=== PATIENT | male | born 1950 | race Two or more races ===

== ENCOUNTER 2021-10-13 08:26 | Day surgery (SDC) | payer MEDICARE, OTHER ==
[~2021-10-13] VITALS: Ht 170.2 cm; Wt 83.0 kg
[~2021-10-13 08:26] MED LIST: CARV3.1240 PO; ROSU10TA16 PO
[2021-10-13] MEDS ORDERED: ANGIOMAX 250 MG VIAL IV ONE (10:09)
[2021-10-13] MEDS ORDERED: HEPARIN SODIUM (PORCINE) 5000 UNITS/ML 1ML VIAL ONE (10:09)
[2021-10-13] MEDS ORDERED: fentaNYL CITRATE 100 MCG/2 ML VL ONE (10:09)
[2021-10-13] MEDS ORDERED: VERAPAMIL 2.5MG/ML INJ 2ML VIAL IV ONE (10:09)
[2021-10-13] MEDS ORDERED: SODIUM CHL 0.9% 0 ML ONE (10:10)
[2021-10-13] MEDS ORDERED: MIDAZOLAM HCL 2MG/2ML 2ml VIAL (1mg/ml) ONE (10:10)
[2021-10-13] MEDS ORDERED: LIDOCAINE 2%HCL (LOCAL ANESTH.) INJ 10ml MDV ONE (10:10)
[2021-10-13] MEDS ORDERED: IODIXANOL 320MG/ML 100ML BTL IV ONE (10:23)
== END 2021-10-13 13:25 | disposition home or self-care (01) ==
LOC: CATH 08:26
PROVIDERS: ATTEND Internal Medicine
DX: R94.39 Abnormal result of other cardiovascular function study (principal); I25.118 Atherosclerotic heart disease of native coronary artery with other forms of angina pectoris; E78.00 Pure hypercholesterolemia, unspecified; Z98.890 Other specified postprocedural states; Z79.899 Other long term (current) drug therapy; Z20.822 Contact with and (suspected) exposure to COVID-19
CPT/HCPCS: 93458; C1760; C1894; J1644; J2001; J2250; J3010; Q9967; U0003; 99152; 99153

== ENCOUNTER 2024-05-01 11:06 | Inpatient (IN) | payer MEDICARE, OTHER ==
[~2024-05-01] VITALS: Ht 170.2 cm; Wt 78.0 kg
[2024-05-01] VITALS (10 sets, daily range): BP systolic 149–178; BP diastolic 79–96; PULSE 60–100; RESP 14–19; TEMP 97.7–98; O2SAT 92–98
--- NOTE | 2024-05-01 11:27 | ED.PDOC ---
HPI Comments 73 year old male presents to the ED with chief complaint of dizziness. Patient reports that he has been experiencing dizziness since earlier this morning. Patient relays that he feels much more dizzy standing up, but when laying down he feels much better. Patient states he had an angiogram performed on 10/2021, but nothing was noted by his Perioperative Educator Dr. Stock. Patient noted to be bradycardic in the 20s and have hypotension during triage. Patient denies any chest pain, SOB, headache, N/V, syncope, or fever. Chief Complaint: Dizziness Time Seen by MD: 11:23 Reviewed Notes: Nurses Notes, Medications, Allergies Allergies: Coded Allergies: No Known Drug Allergy (Verified Allergy, Unknown, 10/08/21) Home Meds Reported Medications Rosuvastatin Calcium (Crestor) 10 Mg Tab, 1 TAB PO DAILY for cholesterol, #30 TAB 5 Refills 10/08/21 Carvedilol (Carvedilol) 3.125 Mg Tab, 3.125 MG PO DAILY for heart for 30 Days, MG 10/08/21 Information Source: Patient Mode of Arrival: Ambulatory Severity: Moderate Timing: Hours Duration: Since onset Prehospital treatment: None Cardiac Risk Factors: Hyperlipidemia PE Risk Factors: None History of: None Past Medical History PAST MEDICAL HISTORY: High Lipids Surgical History: Cholecystectomy Family History Family History: Reviewed,noncontributory to illness Social History Smoker: Non-Smoker Alcohol: Denies ETOH Use Drugs: Denies Drug Use Lives In: Home Constitutional: denies: chills, diaphoresis, fatigue, fever, malaise, sweats, weakness, others EENTM: denies: blurred vision, double vision, ear bleeding, ear discharge, ear drainage, ear pain, ear ringing, eye pain, eye redness, hearing loss, mouth pain, mouth swelling, nasal discharge, nose bleeding, nose congestion, nose pain, photophobia, tearing, throat pain, throat swelling, voice changes, others Respiratory: denies: cough, hemoptysis, orthopnea, SOB at rest, shortness of breath, SOB with excertion, stridor, wheezing, others Cardiovascular: reports: others (Bradycardia); denies: chest pain, dizzy spells, diaphoresis, Dyspnea on exertion, edema, irregular heart beat, left arm pain, lightheadedness, palpitations, PND, syncope Gastrointestinal: denies: abdomen distended, abdominal pain, blood streaked bowels, constipated, diarrhea, dysphagia, difficulty swallowing, hematemesis, melena, nausea, poor appetite, poor fluid intake, rectal bleeding, rectal pain, vomiting, others Genitourinary: denies: burning, dysuria, flank pain, frequency, hematuria, incontinence, penile discharge, penile sore, pain, testicle pain, testicle swelling, urgency, others Neurological: reports: dizziness; denies: fainting, headache, left sided numbness, left sided weakness, numbness, paresthesia, pre-existing deficit, right sided numbness, right sided weakness, seizure, speech problems, tingling, tremors, weakness, others Musculoskeletal: denies: back pain, gout, joint pain, joint swelling, muscle pain, muscle stiffness, neck pain, others Integumetry: denies: bruises, change in color, change in hair/nails, dryness, laceration, lesions, lumps, rash, wounds, others Allergic/Immunocompromised: denies: Difficulty Healing, Frequent Infections, Hi ves, Itching, others Hematologic/Lymphatic: denies: anemia, blood clots, easy bleeding, easy bruising, swollen glands, others Endocrine: denies: excessive hunger, excessive sweating, excessive thirst, excessive urination, flushing, intolerance to cold, intolerance to heat, unexplained weight gain, unexplained weight loss, others Psychiatric: denies: anxiety, bipolar disorder, depression, hopeless, panic disorder, schizophrenia, sleepless, suicidal, others All Other Systems: Reviewed and Negative Physical Exam General Appearance: Moderate Distress, Normal HEENT: Normal ENT Inspection, PERRL/EOMI Neck: Full Range of Motion, Non-Tender, Normal, Normal Inspection Respiratory: Chest Non-Tender, Lungs Clear, No Accessory Muscle Use, No Respiratory Distress, Normal Breath Sounds Cardiovascular: Bradycardia, No Edema, No JVD, No Murmur, No Gallop, Normal Peripheral Pulses Breast Exam: Deferred Gastrointestinal: No Organomegaly, Non Tender, No Pulsatile Mass, Normal Bowel Sounds, Soft Genitalia: Deferred Pelvic: Deferred Rectal: Deferred Extremities: No calf tenderness, Normal capillary refill, Normal inspection, Normal range of motion, Non-tender, No pedal edema Musculoskeletal : Apperance: Normal Neurologic: Alert, rfid manager II-XII nml as Tested, No Motor Deficits, Normal Affect, Normal Mood, No Sensory Deficits Cerebellar Function: NOT DONE Reflexes: NOT DONE Skin: Dry, Normal Color, Warm Peripheral Pulses: 3+ Radial (R), 3+ Radial (L) Lymphatic: No Adenopathy Was a procedure done? Was a procedure done?: No CP Differential Dx Differential Diagnosis: A-fib, A-Flutter, Angina, Anxiety / Panic Attack, Atrial Dysrhythmia, Electrolyte Disorder X-Ray, Labs, Meds, VS Vital Signs Date Time Temp Pulse Resp B/P (MAP) Pulse Ox O2 Delivery O2 Flow Rate FiO2 05/01/24 11:22 98.0 41 18 80/45 (57) 97 Patient alert. Feeling dizzy. Blood pressure low in the triage area. Answering questions. EKG shows bradycardia. His blood pressure normalized while lying down. Possibly will need pacemaker. Cardiology consultation. Placed on backup pacer. Reviewed his previous visit. Explained to the patient. Continue cardiac monitoring. Time of 1ST Reevaluation: 12:23 Reevaluation 1ST: Unchanged Patient Education/Counseling: Diagnosis, Treatment Family Education/Counseling: No Family Present Additional Information I reviewed the following notes from patient's past medical encounters: 10/13/21 for Angiogram The following tests were ordered, and results were reviewed by me: CBC, CMP, Troponin, EKG, Additional Information was gathered from interviewing the following independent historians: None I reviewed and agreed with the following test results read by other providers: None I discussed treatment and results with medical personnel. Departure 1 Departure Time of Disposition: 11:35 Impression: Primary Impression: Bradycardia Disposition: ADMITTED INPATIENT Admit to: Med Surg Condition: Guarded Critical Care Note Critical Care Time?: Yes (90 min-critical care time only) Stability Stability form required: No Heart Score Heart Score: Heart Score Response (Comments) Value History Highly Suspicious 2 EKG Repolarization Disturb 1 Age >65 2 Risk Factors 1 or 2 risk factors 1 Troponin Normal limit 0 Total 6 I personally scribed for MARK MERINO MD ([email or web address]) on 05/01/24 at 11:27. Electronically submitted by Roc Tracy ([email or web address]). MARK MERINO MD May 01, 2024 11:27
[2024-05-01] MEDS: SODIUM CHLORIDE 0.9% 1,000 ML IV ONE (11:30)
[2024-05-01] MEDS: GLUCAGON EMERG KIT 1mg/1ml IV ONE (11:45)
[2024-05-01 11:57] LABS: Basophils # (auto) 0 10 ^3/uL (0-0.2); Basophils % (auto) 0.4 % (0.0-2.0); Eosinophils # (auto) 0.1 10 ^3/uL (0-0.8); Eosinophils % (auto) 1.1 % (0.0-7.0); Hematocrit 44.3 % (41.0-53.0); Hemoglobin 14.9 g/dL (13.5-17.5); Lymphocytes # (auto) 1.3 10 ^3/uL (0.4-5.4); Lymphocytes % (auto) 15.6 % (10.0-50.0); Mean Corpuscular Hemoglobin 29.9 pg (28.0-32.0); Mean Corpuscular Hgb Conc. 33.7 g/dL (32.0-36.0); Mean Corpuscular Volume 88.7 fL (80.0-100.0); Monocytes # (auto) 0.6 10 ^3/uL (0-1.3); Monocytes % (auto) 7.3 % (0.0-12.0); Neutrophils # (auto) 6.1 10 ^3/uL (1.6-8.6); Neutrophils % (auto) 75.6 % (37.0-80.0); Nucleated Red Blood Cells % 0.1 %; Platelet Count (auto) 128 10^3/uL (140-450); Red Blood Cells 4.99 10^6/uL (4.5-5.90); Red Cell Distribution Width 14.7 % (11.8-14.3); White Blood Cell 8.1 10^3/uL (4.4-10.8)
--- NOTE | 2024-05-01 11:57 | DVHINCON2 ---
Date Seen: May 01, 2024 Referring Physician MD Naseem Reason for Consultation Complete heart block History of Present Illness This is a pleasant 73 y.o. male who presented to the Emergency Room with a chief complain of intermittent dizziness for approximately one week. The patient reports intermittent episodes of dizziness since this past week now progressing with tunneled vision, head pressure and mild SOB which prompted him to seek further medical attention. Upon arrival he underwent a twelve-lead electrocardiogram revealing a complete heart block with a HR at 23 bpm. Endorses taking Coreg 3.125 mg BID with latest intake this morning. Follows-up in the outpatient setting with Dr. Stock. Significant medical history includes hypertension and dyslipidemia. Past Medical History Past medical history reviewed. No other significant than mentioned above. Past Surgical History Hernia repair Cholecystectomy Family History Family history reviewed. Social History Denies the use of illicit drugs, alcohol, or tobacco use. Allergies: Coded Allergies: No Known Drug Allergy (Verified Allergy, Unknown, 10/08/21) Home Meds Reported Medications Rosuvastatin Calcium (Crestor) 10 Mg Tab, 1 TAB PO DAILY for cholesterol, #30 TAB 5 Refills 10/08/21 Carvedilol (Carvedilol) 3.125 Mg Tab, 3.125 MG PO DAILY for heart for 30 Days, MG 10/08/21 Home Meds Home medications reviewed. Review of Systems Constitutional: No symptom reported Ears, Nose, & Throat: No symptom reported Eyes: No symptom reported Neurological: Dizziness, visual disturbance, COFFMAN Pulmonary/Respiratory: No symptom reported Cardiovascular: No symptom reported Gastrointestinal: No symptom reported Genitourinary: No symptom reported Musculoskeletal: No symptom reported Skin: No symptom reported Psychiatric: No symptom reported Endocrine: No symptom reported Hemotologic/Lymphatic: No symptom reported Vital Signs Vital Signs Date Time Temp Pulse Resp B/P (MAP) Pulse Ox O2 Delivery O2 Flow Rate FiO2 05/01/24 11:22 98.0 41 18 80/45 (57) 97 Physical Exam General Appearance: Cooperative. Well developed. Well nourished. In no acute distress Head Exam: Normal inspection Neck Exam: Normal inspection. Non-tender. Normal alignment Pulmonary/Respiratory: Chest non-tender. Clear bilateral breath sounds Cardiovascular/Chest: Regular rate and rhythm. S1, S2. Complete heart block. No murmurs. No JVD. Peripheral Pulses: 2+ Radial (R). 2+ Radial (L). 2+ Pedal (R). 2+ Pedal (L) Abdominal Exam: Normal bowel sounds. Soft. Nontender. No hepatospenomegaly. No masses Ankle Exam: Negative ankle edema Lower extremities: Negative lower extremity edema Neuro/Mental Status: A&O x4. Coherent Thoughts/Psych: Normal thought pattern. Appropriate mood and affect. Good judgement and insight. Pleasant Appearance: In no acute distress Skin Exam: Normal inspection. Normal color. Warm. Dry Labs/Diagnostic Data Labs Test 05/01/24 11:30 Range/Units Assessment Complete heart block Rule out structural heart disease Hypertension Dyslipidemia Plan/Recommendation (Dr. Clark) Case discussed with Dr. Clark and Dr. Stock (primary dry chain puller). The patient with a complete heart block has been scheduled for an urgent permanent pacemaker implantation at first available. All risks and benefits of the procedure were discussed with the patient and at bedside. They agree to proceed with intervention. All questions answered. In the meantime, obtain a STAT transthoracic echocardiogram to further determine LV function and possible need for AICD. Avoid AV laura blocking agents. Avoid antiplatelet/AC therapy. C ontinue TC pacing at bedside. Monitor ECG changes closely and notify. Thank you for allowing us to participate in this patient's care. Please call if you have any questions or concerns. Critical care time: 45 min. This medical document was created using an electronic medical record system with voice recognition software and computerized dictation system. Although this document has been carefully reviewed, there might still be some phonetic and typographical errors. Occasional wrong-word or ``sound-alike substitutions may have occurred due to the inherent limitations of voice recognition software. These areas are purely typographical due to imperfections of the software programs and do not reflect any compromise in the patient's medical care. Please read the chart carefully and recognize, using context, where these substitutions have occurred. Plan discussed with: Patient, Other NYHA Physical activity limitations: NA Date of Service: May 01, 2024 Billing Provider: ANKIT GOODMAN Cardiology Common Codes: 37930-[id number] CARE 30-74 MIN ANKIT GOODMAN May 01, 2024 11:57
[2024-05-01] MEDS: GLUCAGON EMERG KIT 1mg/1ml ONE (12:00)
[2024-05-01 12:05] LABS: Albumin 3.8 g/dL (3.2-4.8); Anion Gap 8 (5-15); BUN/Creatinine Ratio 10.7 (10.0-20.0); Blood Urea Nitrogen 13 mg/dL (9-23); Calcium 9.5 mg/dL (8.7-10.4); Carbon Dioxide 22 mmol/L (20-31); Potassium 4.3 mmol/L (3.5-5.1)
[2024-05-01 12:06] LABS: Bilirubin, Total 0.7 mg/dL (0.2-1.0); Total Protein 5.8 g/dL (5.7-8.2)
[2024-05-01 12:08] LABS: Alanine Aminotransferase 123 U/L (7-40); Alkaline Phosphatase 123 U/L (46-116); Aspartate Aminotransferase 40 U/L (13-40); Chloride 116 mmol/L (98-107); Glucose 112 mg/dL (74-106); Sodium 146 mmol/L (136-145)
[2024-05-01 13:08] LABS: INR 1.09 (0.9-1.15); Prothrombin Time 11.5 sec (9.3-11.8)
--- NOTE | 2024-05-01 14:40 | DVH ---
CHEST RADIOGRAPH Indication: Pain Technique: Single frontal view of the chest was obtained COMPARISON: None FINDINGS: Lines and Tubes: None Lungs: Congestion Pleura: No effusion. No pneumothorax. Cardiomediastinal contours: Unremarkable Bones: Unremarkable IMPRESSION: Mild congestion
[2024-05-01] MEDS ORDERED: ACETAMINOPHEN 325 MG TAB PO PRN (17:45)
[2024-05-01] MEDS ORDERED: NITROGLYCERIN 0.4 MG SL TAB SL PRN (17:45)
[2024-05-01] MEDS ORDERED: MORPHINE SULFATE INJ 2 MG/ml SYRG IV PRN (17:45)
[2024-05-01] MEDS ORDERED: ONDANSETRON HCL 4 MG/2 ML VIAL IV PRN (17:45)
--- NOTE | 2024-05-01 17:46 | DVHHP2 ---
History of Present Illness Reason for Visit: SOB History of Present Illness Jose L Hidalgo is a 73-year-old male with past medical history of hyperlipidemia who presents to the ED for shortness of Breath. Upon evaluation in the recovery area patient states that he was short of breath this morning. Came into the ED for evaluation. Denies any fevers, chills, recent sick contacts, nausea, vomiting, and diarrhea. Cardiovascular: hyperipidemia Past Surgical History: Cholecystectomy Family History: Other (Both parents ) Smoke: No ALCOHOL: occassional Drugs: None Lives: with Family Domestic Violence: Neg Review of Systems Constitutional: No: Fever, Chills, Sweats, Weakness, Malaise, Other Eyes: No: Pain, Vision change, Conjunctivae inflammation, Eyelid inflammation, Other, Redness ENT: No: Ear pain, Ear discharge, Nose pain, Nose discharge, Nose congestion, Mouth pain, Mouth swelling, Throat pain, Throat swelling, Other Respiratory: Shortness of breath; No: Cough, Dry, SOB with excertion, Wheezing, Hemoptysis, Pleuritic Pain, Sputum, Wheezing, Other Cardiovascular: No: Chest Pain, Palpitations, Orthopnea, Paroxysmal Noc. Dyspnea, Edema, Lt Headedness, Other Gastrointestinal: No: Nausea, Vomiting, Abdominal Pain, Diarrhea, Constipation, Melena, Hematochezia, Other Genitourinary: No Dysuria, No Frequency, No Incontinence, No Hematuria, No Retention, No Other Musculoskeletal: No: other, neck pain, shoulder pain, arm pain, back pain, hand pain, leg pain, foot pain Skin: No: Rash, Lesions, Jaundice, Bruising, Other Neurological: No: Weakness, Numbness, Incoordination, Change in speech, Confusion, Seizures, Other Allergies: Coded Allergies: No Known Drug Allergy (Verified Allergy, Unknown, 10/08/21) Medications Current Medications Medications Dose Ordered Sig/Atiya Route Start Time Stop Time Status Last Admin Dose Admin Atorvastatin Calcium 40 mg HS PO 05/01/24 22:00 Hydralazine HCl 10 mg Q6HP PRN IV 05/01/24 14:15 Exam Vital Signs Vital Signs Date Time Temp Pulse Resp B/P (MAP) Pulse Ox O2 Delivery O2 Flow Rate FiO2 05/01/24 12:26 60 16 98 Nasal Cannula* 2 28 05/01/24 12:00 98.8 132/76 (94) 98.8 General Appearance: Alert, Oriented X3, Cooperative, No acute distress HEENT: Atraumatic, PERRLA, EOMI, Mucous membr. moist/pink Respiratory: Normal air movement Cardiovascular: Regular rate, Normal S1, Normal S2, No murmurs Abdominal: Normal bowel sounds, Soft, No tenderness, No hepatospenomegaly, No masses Extremities: No clubbing, No cyanosis, No edema, Normal pulses, No tenderness/swelling Skin: No rashes, No breakdown, No significant lesion Neuro: Normal speech, Strength at 5/5 X4 ext, Normal tone, Sensation intact Psych/Mental Status: Mental status NL, Mood NL Labs/Xrays Labs Test 05/01/24 12:52 05/01/24 11:53 05/01/24 11:30 Range/Units Troponin I High Sensitivity 22 </=54 ng/L POC Glucose 110 H 70-106 mg/dl White Blood Count 8.1 4.4-10.8 10^3/uL Red Blood Count 4.99 4.5-5.90 10^6/uL Hemoglobin 14.9 13.5-17.5 g/dL Hematocrit 44.3 41.0-53.0 % Mean Corpuscular Volume 88.7 80.0-100.0 fL Mean Corpuscular Hemoglobin 29.9 28.0-32.0 pg Mean Corpuscular Hemoglobin Concent 33.7 32.0-36.0 g/dL Red Cell Distribution Width 14.7 H 11.8-14.3 % Platelet Count 128 L 140-450 10^3/uL Mean Platelet Volume 10.6 6.9-10.8 fL Neutrophils (%) (Auto) 75.6 37.0-80.0 % Lymphocytes (%) (Auto) 15.6 10.0-50.0 % Monocytes (%) (Auto) 7.3 0.0-12.0 % Eosinophils (%) (Auto) 1.1 0.0-7.0 % Basophils (%) (Auto) 0.4 0.0-2.0 % Neutrophils # (Auto) 6.1 1.6-8.6 10 ^3/uL Lymphocytes # (Auto) 1.3 0.4-5.4 10 ^3/uL Monocytes # (Auto) 0.6 0-1.3 10 ^3/uL Eosinophils # (Auto) 0.1 0-0.8 10 ^3/uL Basophils # (Auto) 0 0-0.2 10 ^3/uL Nucleated Red Blood Cells 0.1 % Prothrombin Time 11.5 9.3-11.8 sec Prothrombin Time INR 1.09 0.9-1.15 Sodium Level 146 H 136-145 mmol/L Potassium Level 4.3 3.5-5.1 mmol/L Chloride Level 116 H 98-107 mmol/L Carbon Dioxide Level 22 20-31 mmol/L Anion Gap 8 5-15 Blood Urea Nitrogen 13 9-23 mg/dL Creatinine 1.21 0.700-1.30 mg/dL Glomerular Filtration Rate Calc 64 >90 mL/min BUN/Creatinine Ratio 10.7 10.0-20.0 Serum Glucose 112 H 74-106 mg/dL Hemoglobin A1c 5.6 <5.7 % A1C Calcium Level 9.5 8.7-10.4 mg/dL Magnesium Level 2.0 1.6-2.6 mg/dL Total Bilirubin 0.7 0.2-1.0 mg/dL Aspartate Amino Transferase (AST) 40 13-40 U/L Alanine Aminotransferase (ALT) 123 H 7-40 U/L Alkaline Phosphatase 123 H 46-116 U/L B-Type Natriuretic Peptide 344.83 0-100 pg/mL Total Protein 5.8 5.7-8.2 g/dL Albumin 3.8 3.2-4.8 g/dL Triglycerides Level 180 H < 150 mg/dL Cholesterol Level 130 < 200 mg/dL LDL Cholesterol 70 < 100 mg/dL HDL Cholesterol 39 L 40-59 mg/dL Thyroid Stimulating Hormone (TSH) 1.98 0.55-4.78 uIU/mL CHEST RADIOGRAPH Indication: Pain Technique: Single frontal view of the chest was obtained COMPARISON: None FINDINGS: Lines and Tubes: None Lungs: Congestion Pleura: No effusion. No pneumothorax. Cardiomediastinal contours: Unremarkable Bones: Unremarkable IMPRESSION: Mild congestion Assessment/Plan Assessment/Plan Assessment/Plan: Sick sinus syndrome with pacemaker placement Labs A.m. labs Atorvastatin Troponin EKG Echo Mag level PT/INR TSH A1c KRISTINA inhibitor BNP IV vancomycin IV antibiotics-ceftriaxone FEN/PPX Diet Hep-Lock DVT ppx - hold, received pacemaker today PUD ppx - not indicated no history of GERD or GI bleed Home medications reconciled Discussed plan of care with patient and nurse Admit to telemetry Plan discussed with: Patient My Orders Orders - EMILIANO MAK Procedure Category Date Status Time Admit ADMIT 05/01/24 Transmitted 17:36 Allergies [facility] 05/01/24 Transmitted 17:36 Code Status CODE 05/01/24 Transmitted 17:36 Ondansetron Hcl PHA 05/01/24 Transmitted (Zofran) 17:45 Complete Blood Count LAB 05/02/24 Verified 04:00 Comprehensive LAB 05/02/24 Verified Metabolic Panel 04:00 Acetaminophen Tablet [facility] 05/01/24 Transmitted (Tylenol Tablet) 17:45 Nitroglycerin [facility] 05/01/24 Verified Sublingual (Ntrostat 17:45 Morphine Sulfate [facility] 05/01/24 Verified Injection 17:45 Stat Ekg For Chest [facility] 05/01/24 Verified Pain 17:36 Notify Md Of Changes [facility] 05/01/24 Verified From Base 17:36 Clerical Grader For [facility] 05/01/24 Verified 24 Hours 17:36 Emergency Dysrhythmia [facility] 05/01/24 Verified Protocol 17:36 Rhythm Strips Once [facility] 05/01/24 Verified Every Shift 17:36 Oxygen By Nasal RT 05/01/24 Verified Cannula 17:36 Date of Service: May 01, 2024 Billing Provider: EMILIANO MAK Common Visit Codes: [id number] INP/OBS CARE (HIGH) EMILIANO MAK May 01, 2024 17:46
[2024-05-01] MEDS: hydrALAZINE HCL 20 MG/ML VL IV PRN (18:15)
[2024-05-01] MEDS: VANCOMYCIN 1GM/250ML KIT 250 ML IV ONE (18:18)
[2024-05-01] MEDS: ATROPINE SULF 1 MG/10ml SYR ONE (18:18)
[2024-05-01] MEDS: LIDOCAINE 2%HCL (LOCAL ANESTH.) INJ 20ML MDV ONE ×2 (18:18)
[2024-05-01] MEDS: IODIXANOL 320MG/ML 100ML BTL IV ONE (18:18)
[2024-05-01] MEDS: fentaNYL CITRATE 100 MCG/2 ML VL ONE (18:18)
[2024-05-01] MEDS: MIDAZOLAM HCL 2MG/2ML 2ml VIAL (1mg/ml) ONE (18:18)
[2024-05-01] MEDS: VANCOMYCIN HCL 1000 MG VL ONE (18:18)
--- NOTE | 2024-05-01 18:19 | DVH ---
EXAM: XY CHEST PORTABLE CLINICAL HISTORY: S/P PACEMAKER TECHNIQUE: Single AP view of the chest WID: COMPARISON: XY CHEST PORTABLE on DOS: 05/01/24 FINDINGS: Lines and tubes: There is a left subclavian pacer with lead tips projecting over the right atrium and right ventricle. Chest: Upper limits of normal-sized heart. Mild prominence of the central pulmonary vasculature. Calcified p laque projects over the aortic arch. Calcified plaque projects over the aortic arch. No pleural effusion, pneumothorax, or consolidation. The osseous structures are grossly intact. IMPRESSION: 1. Upper limits of normal-sized heart with mild prominence of the central pulmonary vasculature. 2. Left subclavian pacemaker with lead tips projecting over the right atrium and right ventricle.
--- NOTE | 2024-05-01 19:49 | DVHOP2 ---
Operative Report - 2 Report Details Date: 05/01/24 Preop Diagnosis: Complete heart block Postop Diagnosis: Dual-chamber pacemaker placement Surgeon: Tian Clark MD Anesthesiologist: Conscious sedation Anesthesia: Mac, Local Implant: Biotronik pacemaker Consent: The patient was informed of the risks and benefits of the procedure. These include but are not limited to complications of anesthesia, postoperative infection, incomplete relief of symptoms, recurrence of symptoms, damage to blood vessels, nerves and tendons, deep venous thrombosis, pulmonary embolism and possible need for repeat surgery in the future. Complications: No complications Estimated Blood Loss: 5 cc Findings: Complete heart block Indications for Surgery: Complete heart block Name of Procedure Performed Permanent dual-chamber pacemaker placement Procedure Details Procedure Details: Prior full informed consent obtained the patient was prepped and draped in usual fashion and an incision made over the left infraclavicular left pectoral area after conscious sedation and local anesthetic given. A pocket was then formed under the pectoral fascia with blunt dissection and electrocautery. The pocket was filled with an antibiotic filled Ray-Campbell gauze. Under fluoroscopic guidance subsequent to prior venography we placed a subclavian sheath into the left subclavian vein with a cook needle and AJ curved guidewire. Peel-away sheaths were inserted subsequent to which active fixation electrodes were placed into the RV apex and right atrial appendage after adequate capture and sensitivity thresholds were obtained. These were sutured with 0 Ethibond. We then connected the pacemaker generator removed the Ray-Campbell sponge and flushed the pocket with antibiotic solution. We connected the pacemaker generator and placed it into the pocket under the fascia. We closed the fascia with 3-0 Vicryl. The skin was closed with 4-0 Monocryl. The patient tolerated the procedure well there were no complications. The implanted device was in [place] 8 DR-T by [employer] SERIAL #[id number] THE ATRIAL LEAD IS A SOLIA S45 BY [employer]ON[employer]. SERIAL [id number] THE VENTRICULAR LEAD IS A SOLIA S 53 SERIAL [id number] the atrial threshold revealed a P-wave of 1.8 At 1.1 volts and 0.4 milliseconds and 525 Ohms The ventricular lead revealed an R-wave of 8.5 At 0.5 volts 0.4 milliseconds and 760 Ohms of impedance The settings were as follows: DDDR mode at lower rate of 65 upper rate of 130. Pulse amplitude of 4 volts in both atrium and ventricle. Pulse width of 0.4 milliseconds in both atrium and ventricle. A sensitivity of 0.4 mV in the atrium 2 volts in the ventricle. Bipolar configuration in both sensing and pacing. An AV delay of 205/-175 milliseconds with a PVARP of 250 milliseconds \ RA sensitivity at automatic 0.5 mV max. RV sensitivity automatic at 20 mV max . Right atrial output at 3.6 volts at 0.4 milliseconds and right ventricular output at 3.6 volts at 0.4 milliseconds. A chest x-ray was obtained for evaluation of placement. An EKG was ordered. Patient tolerated the procedure well there were no complications. Condition Good Disposition Still a Patient Date of Service: May 01, 2024 Billing Provider: TIAN CLARK Sr., MD Cardiology Common Codes: [id number] INP/OBS CARE (High) Card. Pacer Implants/Gen [id number] DUAL LEAD PACER TIAN CLARK Sr., MD May 01, 2024 19:49
[2024-05-01] MEDS: cefTRIAXone 1GM/50ML D5W 50 ML IV ONE (20:07)
[2024-05-01] MEDS: HYDROcodone-ACET 7.5/325MG TAB PO ONE (20:44)
--- NOTE | 2024-05-01 20:45 | ECG ---
[facility] Test Date: 2024-05-01 Test Time: 11:15:09 Pat Name: ANTHONY QUINONEZ Department: ER Room: 0289T B Gender: M Flat Clothier: IG : 1950 Requested By: TIAN CLARK Order Number: [id number] Reading MD: Tian Clark Measurements Intervals [employer] Rate: 23 P: 0 NH: 0 QRS: 61 QRSD: 138 T: 1 QT: 666 QTc: 412 Interpretive Statements AV block, complete (third degree) Right bundle branch block Electronically Signed On 05-03-2024 16:36:52 PST by Tian Clark Please click the below link to view image of tracing.
[2024-05-01] MEDS: ATORVASTATIN 20 MG TAB PO SCH (21:50)
[2024-05-02] VITALS (9 sets, daily range): BP systolic 125–144; BP diastolic 62–83; PULSE 35–69; RESP 16–18; TEMP 97.6–98.1; O2SAT 93–99
--- NOTE | 2024-05-02 05:15 | DVH ---
CHEST RADIOGRAPH Indication: s/p PPI Technique: Single frontal view of the chest was obtained Comparison: XY CHEST PORTABLE on DOS: 05/01/24, XY CHEST PORTABLE on DOS: 05/01/24 FINDINGS: Lines and Tubes: Dual-chamber pacemaker right atrial and ventricular leads. Lungs: No focal consolidation. Pleura: No effusion. No pneumothorax. Cardiomediastinal contours: Stable cardiovascular silhouette. Bones: No acute osseous abnormality. IMPRESSION: 1. No acute cardiopulmonary disease.
[2024-05-02 06:58] LABS: Albumin 3.3 g/dL (3.2-4.8); Alkaline Phosphatase 101 U/L (46-116); Anion Gap 7 (5-15); Aspartate Aminotransferase 32 U/L (13-40); BUN/Creatinine Ratio 13.7 (10.0-20.0); Bilirubin, Total 0.9 mg/dL (0.2-1.0); Blood Urea Nitrogen 14 mg/dL (9-23); Calcium 9.2 mg/dL (8.7-10.4); Carbon Dioxide 23 mmol/L (20-31); Glucose 90 mg/dL (74-106); Potassium 4.1 mmol/L (3.5-5.1); Sodium 143 mmol/L (136-145)
[2024-05-02 06:59] LABS: Basophils # (auto) 0 10 ^3/uL (0-0.2); Basophils % (auto) 0.3 % (0.0-2.0); Eosinophils # (auto) 0.2 10 ^3/uL (0-0.8); Eosinophils % (auto) 1.7 % (0.0-7.0); Hematocrit 45.2 % (41.0-53.0); Hemoglobin 15.1 g/dL (13.5-17.5); Lymphocytes # (auto) 1.6 10 ^3/uL (0.4-5.4); Lymphocytes % (auto) 16.4 % (10.0-50.0); Mean Corpuscular Hemoglobin 29.6 pg (28.0-32.0); Mean Corpuscular Hgb Conc. 33.5 g/dL (32.0-36.0); Mean Corpuscular Volume 88.5 fL (80.0-100.0); Monocytes # (auto) 0.9 10 ^3/uL (0-1.3); Monocytes % (auto) 8.7 % (0.0-12.0); Neutrophils # (auto) 7.2 10 ^3/uL (1.6-8.6); Neutrophils % (auto) 72.9 % (37.0-80.0); Nucleated Red Blood Cells % 0.2 %; Platelet Count (auto) 113 10^3/uL (140-450); Red Cell Distribution Width 14.8 % (11.8-14.3); White Blood Cell 9.8 10^3/uL (4.4-10.8)
[2024-05-02 07:05] LABS: Alanine Aminotransferase 100 U/L (7-40); Chloride 113 mmol/L (98-107); Total Protein 5.4 g/dL (5.7-8.2)
[2024-05-02] MEDS: cefTRIAXone 1GM/50ML D5W 50 ML IV SCH (09:43)
[2024-05-02] MEDS: HYDROcodone-ACET 5/325MG TAB PO PRN (09:44)
--- NOTE | 2024-05-02 14:26 | DVHPN2 ---
Reviewed: Care Plan, H&P, Labs, Medications, Previous Orders, Radiology Changes from previous H/P or p: No Changes Eyes: No Pain, No Vision change, No Conjunctivae inflammation, No Eyelid inflammation, No Other, No Redness ENT: No Ear pain, No Ear discharge, No Nose pain, No Nose discharge, No Nose congestion, No Mouth pain, No Mouth swelling, No Throat pain, No Throat swelling, No Other Cardiovascular: No Chest Pain, No Palpitations, No Orthopnea, No Paroxysmal Noc. Dyspnea, No Edema, No Lt Headedness, No Other Respiratory: No Cough, No Dry; Shortness of breath; No SOB with excertion, No Wheezing, No Hemoptysis, No Pleuritic Pain, No Sputum, No Other Gastrointestinal: No Nausea, No Vomiting, No Abdominal Pain, No Diarrhea, No Constipation, No Melena, No Hematochezia, No Other Genitourinary: No Dysuria, No Frequency, No Incontinence, No Hematuria, No Retention, No Other Musculoskeletal: No other, No neck pain, No shoulder pain, No arm pain, No back pain, No hand pain, No leg pain, No foot pain Skin: No Rash, No Lesions, No Jaundice, No Bruising, No Other Objective Vitals Vital Signs Date Time Temp Pulse Resp B/P (MAP) Pulse Ox O2 Delivery O2 Flow Rate FiO2 05/02/24 13:00 97.9 65 18 135/62 (86) 99 97.9 05/02/24 07:45 Room Air* 0 21 Intake/Output Intake and Output 05/02/24 07:00 Intake Total 1450 ml Balance 1450 ml Intake Oral 400 ml IV Total 1050 ml Medications Current Medications Medications Dose Ordered Sig/Atiya Route Start Time Stop Time Status Last Admin Dose Admin Atorvastatin Calcium 40 mg HS PO 05/01/24 22:00 05/01/24 21:50 40 MG Hydralazine HCl 10 mg Q6HP PRN IV 05/01/24 14:15 05/02/24 09:45 10 MG Ondansetron HCl 4 mg Q4HP PRN IV 05/01/24 17:45 Acetaminophen 650 mg Q6HP PRN PO 05/01/24 17:45 Nitroglycerin 0.4 mg Q5MINP PRN SL 05/01/24 17:45 Morphine Sulfate 2 mg Q30M PRN IV 05/01/24 17:45 Ceftriaxone Sodium 50 ml @ 100 mls/hr DAILY@09 IV 05/02/24 09:00 05/02/24 09:43 100 MLS/HR Acetaminophen/ Hydrocodone Bitart 1 tab Q4HPRN PRN PO 05/02/24 09:15 05/02/24 09:44 1 TAB Laboratory Results Laboratory Tests 05/02/24 06:16 Chemistry Test 05/02/24 06:16 Albumin 3.3 g/dL (3.2-4.8) Calcium Level 9.2 mg/dL (8.7-10.4) Total Protein 5.4 g/dL (5.7-8.2) L LFT Test 05/02/24 06:16 Alanine Aminotransferase (ALT) 100 U/L (7-40) H Alkaline Phosphatase 101 U/L (46-116) Aspartate Amino Transferase (AST) 32 U/L (13-40) Total Bilirubin 0.9 mg/dL (0.2-1.0) Labs and/or images reviewed: Labs reviewed by me, Image(s) reviewed by me Assessment/Plan Assessment/Plan Complete heart block status post placement of permanent pacemaker by Dr. Clark 05/01/2024 on emergency basis Rule out structural heart disease Hypertension Dyslipidemia Plan discussed with: Patient Date of Service: May 02, 2024 Billing Provider: TIFFANIE NEWTON MD Common Visit Codes: [id number] INP/OBS CARE(HIGH) TIFFANIE NEWTON MD May 02, 2024 14:26
--- NOTE | 2024-05-02 14:32 | ECG ---
[facility] Test Date: 2024-05-01 Test Time: 17:26:41 Pat Name: ANTHONY QUINONEZ Department: Room: 0289T B Gender: M Global Coordinator: ELISEO : 1950 Requested By: ANKIT GOODMAN Order Number: [id number] Reading MD: Glen Gooden Measurements Intervals [place] Rate: 65 P: 33 MD: 114 QRS: -55 QRSD: 196 T: 91 QT: 488 QTc: 507 Interpretive Statements AV sequential or dual chamber electronic pacemaker Electronically Signed On 05-03-2024 8:12:21 PST by Glen Gooden Please click the below link to view image of tracing.
[2024-05-03] VITALS (8 sets, daily range): BP systolic 114–152; BP diastolic 69–86; PULSE 62–67; RESP 18–19; TEMP 98–98.5; O2SAT 92–97
--- NOTE | 2024-05-03 11:30 | DVHPN2 ---
Reviewed: Care Plan, H&P, Labs, Medications, Previous Orders, Radiology Changes from previous H/P or p: No Changes Eyes: No Pain, No Vision change, No Conjunctivae inflammation, No Eyelid inflammation, No Other, No Redness ENT: No Ear pain, No Ear discharge, No Nose pain, No Nose discharge, No Nose congestion, No Mouth pain, No Mouth swelling, No Throat pain, No Throat swelling, No Other Cardiovascular: No Chest Pain, No Palpitations, No Orthopnea, No Paroxysmal Noc. Dyspnea, No Edema, No Lt Headedness, No Other Respiratory: No Cough, No Dry; Shortness of breath; No SOB with excertion, No Wheezing, No Hemoptysis, No Pleuritic Pain, No Sputum, No Other Gastrointestinal: No Nausea, No Vomiting, No Abdominal Pain, No Diarrhea, No Constipation, No Melena, No Hematochezia, No Other Genitourinary: No Dysuria, No Frequency, No Incontinence, No Hematuria, No Retention, No Other Musculoskeletal: No other, No neck pain, No shoulder pain, No arm pain, No back pain, No hand pain, No leg pain, No foot pain Skin: No Rash, No Lesions, No Jaundice, No Bruising, No Other Objective Vitals Vital Signs Date Time Temp Pulse Resp B/P (MAP) Pulse Ox O2 Delivery O2 Flow Rate FiO2 05/03/24 09:00 98.0 65 18 147/86 (106) 94 98.0 05/02/24 20:00 Room Air* 0 21 Intake/Output Intake and Output 05/03/24 07:00 Intake Total 525 ml Output Total 1100 ml Balance -575 ml Intake Oral 475 ml IV Total 50 ml Output Urine Total 1100 ml # Voids 2 Medications Current Medications Medications Dose Ordered Sig/Atiya Route Start Time Stop Time Status Last Admin Dose Admin Atorvastatin Calcium 40 mg HS PO 05/01/24 22:00 05/02/24 22:05 40 MG Hydralazine HCl 10 mg Q6HP PRN IV 05/01/24 14:15 05/02/24 09:45 10 MG Ondansetron HCl 4 mg Q4HP PRN IV 05/01/24 17:45 Acetaminophen 650 mg Q6HP PRN PO 05/01/24 17:45 Nitroglycerin 0.4 mg Q5MINP PRN SL 05/01/24 17:45 Morphine Sulfate 2 mg Q30M PRN IV 05/01/24 17:45 Ceftriaxone Sodium 50 ml @ 100 mls/hr DAILY@09 IV 05/02/24 09:00 05/03/24 08:30 100 MLS/HR Acetaminophen/ Hydrocodone Bitart 1 tab Q4HPRN PRN PO 05/02/24 09:15 05/02/24 09:44 1 TAB Laboratory Results Laboratory Tests 05/02/24 06:16 Labs and/or images reviewed: Labs reviewed by me, Image(s) reviewed by me Assessment/Plan Assessment/Plan Complete heart block status post placement of permanent pacemaker by Dr. Clark 05/01/2024 on emergency basis Rule out structural heart disease Hypertension Dyslipidemia Spoke with Dr Clark, he will see the patient and discharge Plan discussed with: Patient Date of Service: May 03, 2024 Billing Provider: TIFFANIE NEWTON MD Common Visit Codes: [id number] INP/OBS CARE(HIGH) TIFFANIE NEWTON MD May 03, 2024 11:30
--- NOTE | 2024-05-03 11:35 | DVHDS2 ---
Discharge Summary Date of Admission May 01, 2024 at 17:36 Date of Discharge: May 03, 2024 Admitting Diagnosis Generalized weakness Wounds: Pacemaker placement Labs/Diagnostic Data: Laboratory Results Test 05/02/24 06:16 05/01/24 19:51 05/01/24 11:53 05/01/24 11:30 White Blood Count 9.8 10^3/uL (4.4-10.8) Red Blood Count 5.10 10^6/uL (4.5-5.90) Hemoglobin 15.1 g/dL (13.5-17.5) Hematocrit 45.2 % (41.0-53.0) Mean Corpuscular Volume 88.5 fL (80.0-100.0) Mean Corpuscular Hemoglobin 29.6 pg (28.0-32.0) Mean Corpuscular Hemoglobin Concent 33.5 g/dL (32.0-36.0) Red Cell Distribution Width 14.8 % (11.8-14.3) Platelet Count 113 10^3/uL (140-450) Mean Platelet Volume 10.1 fL (6.9-10.8) Neutrophils (%) (Auto) 72.9 % (37.0-80.0) Lymphocytes (%) (Auto) 16.4 % (10.0-50.0) Monocytes (%) (Auto) 8.7 % (0.0-12.0) Eosinophils (%) (Auto) 1.7 % (0.0-7.0) Basophils (%) (Auto) 0.3 % (0.0-2.0) Neutrophils # (Auto) 7.2 10 ^3/uL (1.6-8.6) Lymphocytes # (Auto) 1.6 10 ^3/uL (0.4-5.4) Monocytes # (Auto) 0.9 10 ^3/uL (0-1.3) Eosinophils # (Auto) 0.2 10 ^3/uL (0-0.8) Basophils # (Auto) 0 10 ^3/uL (0-0.2) Nucleated Red Blood Cells 0.2 % Sodium Level 143 mmol/L (136-145) Potassium Level 4.1 mmol/L (3.5-5.1) Chloride Level 113 mmol/L (98-107) Carbon Dioxide Level 23 mmol/L (20-31) Anion Gap 7 (5-15) Blood Urea Nitrogen 14 mg/dL (9-23) Creatinine 1.02 mg/dL (0.700-1.30) Glomerular Filtration Rate Calc 78 mL/min (>90) BUN/Creatinine Ratio 13.7 (10.0-20.0) Serum Glucose 90 mg/dL (74-106) Calcium Level 9.2 mg/dL (8.7-10.4) Total Bilirubin 0.9 mg/dL (0.2-1.0) Aspartate Amino Transferase (AST) 32 U/L (13-40) Alanine Aminotransferase (ALT) 100 U/L (7-40) Alkaline Phosphatase 101 U/L (46-116) Total Protein 5.4 g/dL (5.7-8.2) Albumin 3.3 g/dL (3.2-4.8) Troponin I High Sensitivity 73 ng/L (</=54) POC Glucose 110 mg/dl (70-106) Prothrombin Time 11.5 sec (9.3-11.8) Prothrombin Time INR 1.09 (0.9-1.15) Hemoglobin A1c 5.6 % A1C (<5.7) Magnesium Level 2.0 mg/dL (1.6-2.6) B-Type Natriuretic Peptide 344.83 pg/mL (0-100) Triglycerides Level 180 mg/dL (< 150) Cholesterol Level 130 mg/dL (< 200) LDL Cholesterol 70 mg/dL (< 100) HDL Cholesterol 39 mg/dL (40-59) Thyroid Stimulating Hormone (TSH) 1.98 uIU/mL (0.55-4.78) Other Laboratory Tests 05/02/24 06:16 Brief Hx & Hospital Course: 73-year-old male with a history of hypertension hypercholesterolemia brought in for generalized weakness and found to have complete heart block and underwent dual-chamber pacemaker placement on an emergency basis by Dr. Clark on 05/01/2024. Postop course uneventful at the time of discharge patient is asymptomatic with stable vital signs discharged home. 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 Clark Operations or Procedures Dual-chamber pacemaker placement Condition at Discharge: Fair Final Diagnosis/Problems List Complete heart block status post placement of dual-chamber permanent pacemaker by Dr. 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 Patient was counseled about treatment plan, medications, possible side effects, patientverbalized understanding. All questions were answered to the best of my ability. This discharge took greater then 30 minutes in planning, reviewing documentation, counseling the patient, and discussing with other team members." ASSESSMENT ASSESSMENT Assessment Complete heart block status post placement of dual-chamber permanent pacemaker by Dr. Clark 05/01/2024 on emergency basis Rule out structural heart disease Hypertension Dyslipidemia Date of Service: May 03, 2024 Billing Provider: TIFFANIE NEWTON MD Common Visit Codes: [id number] INP/OBS CARE(HIGH) TIFFANIE NEWTON MD May 03, 2024 11:35
--- NOTE | 2024-05-04 16:23 | DVHSR ---
APPROVED REPORT EXAM: Two-dimensional and M-mode echocardiogram with Doppler and color Doppler. Blood Pressure: 132/76 mmHg INDICATION complete heart block RISK FACTORS Height: 67, Weight: 182 DIMENSIONS LVDd (3.8-5.7cm)LA (2D)4.5 (1.9-4.0cm)Aortic Root3.9 (2.0-3.7cm) LVDs (2.5-4.0cm)LA (MM) (1.9-4.0cm)Aortic Cusp Exc1.4 (1.5-2.0cm) EF (%) 52.0 (55-70%)Rt. Atrium4.9 (1.9-4.0cm)Asc. Aorta cm Mitral Valve MitralMitral Stenosis E wave0.70m/sMV Mean GR.mmHg A wave0.94m/sMV Peak GR.6mmHg E/A ratio0.72D MVAcm2 DECEL [id number] 1/2 [id number] IVRTmsDop MVA2.32cm2 Aortic Valve Aortic ValveAortic Stenosis V11.29m/Kuldip Mean GR.8mmHg V21.96m/Kuldip Peak GR.15mmHg LVOT Diameter2.3 (1.8-2.4cm)Doppler AVA2.73cm2 Pulmonic Valve V21.22m/s Tricuspid Valve TR Velocity2.53m/s [id number] Conclusion Technically good study. Complete heart block noted. Bradycardia. Biatrial enlargement. Mild LV enlargement. Valves are normal. EF of 60% with normal RV function. Unremarkable Doppler. Mild MR. No pericardial effusion masses or vegetations.
== END 2024-05-03 17:30 | disposition home or self-care (01) | DRG 243 ==
LOC: ER 11:06 → TELE 17:36 → TELE-WESTW 18:45
PROVIDERS: ADMIT Family Medicine; ATTEND Family Medicine
PROC: 0JH606Z Insertion of Pacemaker, Dual Chamber into Chest Subcutaneous Tissue and Fascia, Open Approach (ICD-10-PCS; principal; 2024-05-01)
PROC: 02H63JZ Insertion of Pacemaker Lead into Right Atrium, Percutaneous Approach (ICD-10-PCS; 2024-05-01)
PROC: 02HK3JZ Insertion of Pacemaker Lead into Right Ventricle, Percutaneous Approach (ICD-10-PCS; 2024-05-01)
PROC: B517YZZ Fluoroscopy of Left Subclavian Vein using Other Contrast (ICD-10-PCS; 2024-05-01)
DX: I49.5 Sick sinus syndrome (principal); I44.2 Atrioventricular block, complete; I10 Essential (primary) hypertension; E78.00 Pure hypercholesterolemia, unspecified; Z90.49 Acquired absence of other specified parts of digestive tract; Z79.899 Other long term (current) drug therapy
CPT/HCPCS: 36415; 71045; 80053; 80061; 82962; 83036; 83735; 83880; 84443; 84484; 85025; 85610; 93005; 93306; 99152; 99291; 99292; G0378; J2250; Q9967